=== PATIENT | female | born 1955 | race Caucasian/White ===

== ENCOUNTER → 2016-08-03 | Outpatient (CLI) | payer OTHER | LOC: RAD 09:09 | PROVIDERS: ATTEND Family Medicine | DX: C82.88 Other types of follicular lymphoma, lymph nodes of multiple sites (principal); C85.80 Other specified types of non-Hodgkin lymphoma, unspecified site | CPT/HCPCS: 70491; 71260; 74178; Q9967 ==

== ENCOUNTER 2016-08-21 09:21 | Day surgery (SDC) | payer OTHER ==
[~2016-08-21] VITALS: Ht 170.2 cm; Wt 78.0 kg
[2016-08-21] VITALS (8 sets, daily range): BP systolic 99–1166; BP diastolic 62–92
[~2016-08-21 09:21] MED LIST: ASPI-586 PO; ATOR80TA PO; CHOL200018 PO; CYAN1TAB26 PO; DIGO250T15 PO; DILT120C PO; HEPARIN 5000 UNIT/0.5 ML SYRINGE ONE; INSU100I23 SQ; LACTATED RINGERS 1,000 ML IV SCH; LANTUS SOL100 UNIT/1 SQ; LIDOCAINE/EPINEPHRINE 1% 1:100,000 (XYLOCAINE) 30 ML VIAL INJ ONE; LISI5TAB14 PO; METF500T4 PO; METHYLENE BLUE 0.5% 50 MG/10 ML VIAL ONE; MTP50T PO; NS FLUSH 10 ML PRN IV; SIMV40TA2 PO; SODIUM CHLORIDE FLUSH 3 ML SYR IV PRN; ceFAZolin 2,000 MG in WATER (STERILE) FOR INJECTION 20 ML IV SCH
--- OUTSIDE RECORDS SUMMARY | 2016-08-21 09:25 | XMS REPORT | Continuity of Care Document ---
Author Author [facility] Address Unknown Phone Unavailable Allergies Active Description Code Type Severity Reaction Onset Reported/Identified Relationship to Patient Clinical Status Yes No Known Allergies [id number] Drug Allergy Unknown N/A 07/06/2013 Medications Problems Date Dx Coded Attending Type Code Diagnosis Diagnosed By 06/28/2012 Ot 038.9 SEPTICEMIA NOS 06/28/2012 Ot 041.12 METHICILLIN RESISTANT STAPHYLOCOCCUS AUR 06/28/2012 Ot 250.60 DIAB W NEURO MANIFEST, TYPE II OR UNSPEC 06/28/2012 Ot 250.80 DIAB W OTH SPEC MANIFEST, TYPE II OR UNS 06/28/2012 Ot 272.4 HYPERLIPIDEMIA NEC/NOS 06/28/2012 Ot 681.10 CELLULITIS, TOE NOS 06/28/2012 Ot 700 CORNS AND CALLOSITIES 06/28/2012 Ot 707.15 ULCER OF OTHER PART OF FOOT 06/28/2012 Ot 730.27 OSTEOMYELITIS NOS-ANKLE 06/28/2012 Ot 731.8 BONE INVOLV IN OTH DIS 06/28/2012 Ot 735.4 OTHER HAMMER TOE 06/28/2012 Ot 799.24 EMOTIONAL LABILITY 06/28/2012 Ot 995.92 SEVERE SEPSIS 06/28/2012 Ot V10.79 HX-LYMPHATIC MALIGN NEC 06/28/2012 Ot V58.67 LONG-TERM (CURRENT) USE OF INSULIN 09/09/2012 Ot 730.20 OSTEOMYELITIS NOS-UNSPEC 09/09/2012 Ot V58.62 ENCOUNT FOR LONG-TERM(CURRENT) USE OF AN 11/10/2012 Ot 041.12 METHICILLIN RESISTANT STAPHYLOCOCCUS AUR 11/10/2012 Ot 250.00 DIAB KENTRELL WO COMPL, TYPE II OR UNSPEC TY 11/10/2012 Ot 730.18 CHR OSTEOMYELIT NEC 11/10/2012 Ot V58.62 ENCOUNT FOR LONG-TERM(CURRENT) USE OF AN 11/10/2012 Ot V58.83 ENCOUNTER FOR THERAPEUTIC DRUG MONITORIN 07/06/2013 Jun LUI, Alonso [place] Ot 462 ACUTE PHARYNGITIS 09/15/2013 KULWANT VALERO DO Ot 276.8 HYPOPOTASSEMIA 09/15/2013 KULWANT VALERO DO Ot 724.2 LUMBAGO 09/15/2013 KULWANT VALERO DO Ot 786.05 SHORTNESS OF BREATH 10/10/2015 Ot 250.00 DIAB KENTRELL WO COMPL, TYPE II OR UNSPEC TY 10/10/2015 Ot 707.15 ULCER OF OTHER PART OF FOOT 10/10/2015 Ot 730.17 CHR OSTEOMYELIT-ANKLE 10/10/2015 Ot 682.7 CELLULITIS OF FOOT 10/10/2015 Ot 707.15 ULCER OF OTHER PART OF FOOT 10/10/2015 Ot V58.62 ENCOUNT FOR LONG-TERM(CURRENT) USE OF AN 10/10/2015 Ot V58.83 ENCOUNTER FOR THERAPEUTIC DRUG MONITORIN 10/10/2015 Ot 041.12 METHICILLIN RESISTANT STAPHYLOCOCCUS AUR 10/10/2015 Ot 041.84 BACTERIAL INFECTION DUE TO OTHER ANAEROB 10/10/2015 Ot 730.18 CHR OSTEOMYELIT NEC 10/10/2015 Ot V58.62 ENCOUNT FOR LONG-TERM(CURRENT) USE OF AN 10/10/2015 Ot 733.00 OSTEOPOROSIS NOS 10/10/2015 Ot 730.18 CHR OSTEOMYELIT NEC 10/10/2015 Ot V58.62 ENCOUNT FOR LONG-TERM(CURRENT) USE OF AN 10/10/2015 Ot V58.83 ENCOUNTER FOR THERAPEUTIC DRUG MONITORIN 10/10/2015 Ot V64.2 NO PROC/PATIENT DECISION 10/10/2015 Ot 996.59 MECH. COMPLIC, OTH. IMPLANT INTERNAL D 10/10/2015 Ot V58.62 ENCOUNT FOR LONG-TERM(CURRENT) USE OF AN 10/10/2015 Ot V58.83 ENCOUNTER FOR THERAPEUTIC DRUG MONITORIN 10/10/2015 Ot 202.80 OTH LYMPHOMAS EXTRANODAL SOLID ORGAN U 10/10/2015 Alonso Barahona MD Ot 202.80 OTH LYMPHOMAS EXTRANODAL SOLID ORGAN U 10/10/2015 Alonso Barahona MD Ot 730.20 OSTEOMYELITIS NOS-UNSPEC 10/10/2015 RADHA ORO MD Ot 996.1 MALFUNC VASC DEVICE/CRISTHIAN 10/10/2015 RADHA ORO MD Ot E879.8 ABN REACT-PROCEDURE NEC 10/10/2015 ALONSO IGNACIO MD Ot 510.9 EMPYEMA W/O FISTULA 10/10/2015 ALONSO IGNACIO MD Ot 730.27 OSTEOMYELITIS NOS-ANKLE 10/10/2015 ALONSO IGNACIO MD Ot 202.80 OTH LYMPHOMAS EXTRANODAL SOLID ORGAN U 10/10/2015 ALONSO IGNACIO MD Ot 510.9 EMPYEMA W/O FISTULA 10/10/2015 ALONSO IGNACIO MD Ot 730.27 OSTEOMYELITIS NOS-ANKLE 10/10/2015 ALONSO IGNACIO MD Ot 794.2 ABN PULMONARY FUNC STUDY 10/10/2015 ALONSO IGNACIO MD Ot V45.89 POSTSURGICAL STATES NEC 10/10/2015 Alonso Barahona MD Ot 786.50 CHEST PAIN NOS 10/10/2015 Ángel Kramer Ot 786.05 SHORTNESS OF BREATH 10/10/2015 ALONSO IGNACIO MD Ot 202.01 NODULAR LYMPHOMA HEAD 10/10/2015 ALONSO IGNACIO MD Ot 794.8 ABN LIVER FUNCTION STUDY 10/16/2015 ALONSO IGNACIO MD Ot Z85.72 PERSONAL HISTORY OF NON-HODGKIN LYMPHOMA 10/25/2015 ALONSO IGNACIO MD Ot Z85.72 PERSONAL HISTORY OF NON-HODGKIN LYMPHOMA 08/03/2016 Ot 250.00 DIAB KENTRELL WO COMPL, TYPE II OR UNSPEC TY 08/03/2016 Ot 707.15 ULCER OF OTHER PART OF FOOT 08/03/2016 Ot 730.17 CHR OSTEOMYELIT-ANKLE 08/03/2016 Ot 682.7 CELLULITIS OF FOOT 08/03/2016 Ot 707.15 ULCER OF OTHER PART OF FOOT 08/03/2016 Ot V58.62 ENCOUNT FOR LONG-TERM(CURRENT) USE OF AN 08/03/2016 Ot V58.83 ENCOUNTER FOR THERAPEUTIC DRUG MONITORIN 08/03/2016 Ot 041.12 METHICILLIN RESISTANT STAPHYLOCOCCUS AUR 08/03/2016 Ot 041.84 BACTERIAL INFECTION DUE TO OTHER ANAEROB 08/03/2016 Ot 730.18 CHR OSTEOMYELIT NEC 08/03/2016 Ot V58.62 ENCOUNT FOR LONG-TERM(CURRENT) USE OF AN 08/03/2016 Ot 733.00 OSTEOPOROSIS NOS 08/03/2016 Ot 730.18 CHR OSTEOMYELIT NEC 08/03/2016 Ot V58.62 ENCOUNT FOR LONG-TERM(CURRENT) USE OF AN 08/03/2016 Ot V58.83 ENCOUNTER FOR THERAPEUTIC DRUG MONITORIN 08/03/2016 Ot V64.2 NO PROC/PATIENT DECISION 08/03/2016 Ot 996.59 MECH. COMPLIC, OTH. IMPLANT INTERNAL D 08/03/2016 Ot V58.62 ENCOUNT FOR LONG-TERM(CURRENT) USE OF AN 08/03/2016 Ot V58.83 ENCOUNTER FOR THERAPEUTIC DRUG MONITORIN 08/03/2016 Ot 202.80 OTH LYMPHOMAS EXTRANODAL SOLID ORGAN U 08/03/2016 Alonso Barahona MD Ot 202.80 OTH LYMPHOMAS EXTRANODAL SOLID ORGAN U 08/03/2016 Alonso Barahona MD Ot 730.20 OSTEOMYELITIS NOS-UNSPEC 08/03/2016 RADHA ORO MD Ot 996.1 MALFUNC VASC DEVICE/CRISTHIAN 08/03/2016 RADHA ORO MD Ot E879.8 ABN REACT-PROCEDURE NEC 08/03/2016 ALONSO IGNACIO MD Ot 510.9 EMPYEMA W/O FISTULA 08/03/2016 ALONSO IGNACIO MD Ot 730.27 OSTEOMYELITIS NOS-ANKLE 08/03/2016 ALONSO IGNACIO MD Ot 202.80 OTH LYMPHOMAS EXTRANODAL SOLID ORGAN U 08/03/2016 ALONSO IGNACIO MD Ot 510.9 EMPYEMA W/O FISTULA 08/03/2016 ALONSO IGNACIO MD Ot 730.27 OSTEOMYELITIS NOS-ANKLE 08/03/2016 ALONSO IGNACIO MD Ot 794.2 ABN PULMONARY FUNC STUDY 08/03/2016 ALONSO IGNACIO MD Ot V45.89 POSTSURGICAL STATES NEC 08/03/2016 Alonso Barahona MD Ot 786.50 CHEST PAIN NOS 08/03/2016 Ángel Kramer Ot 786.05 SHORTNESS OF BREATH 08/03/2016 ALONSO IGNACIO MD Ot 202.01 NODULAR LYMPHOMA HEAD 08/03/2016 ALONSO IGNACIO MD Ot 794.8 ABN LIVER FUNCTION STUDY 08/03/2016 ALONSO IGNACIO MD Ot Z85.72 PERSONAL HISTORY OF NON-HODGKIN LYMPHOMA 08/07/2016 Alonso Barahona MD Ot C82.88 OTH TYPES OF FOLLICULAR LYMPHOMA, LYMPH 08/07/2016 Alonso Barahona MD, Ot C85.80 OT TYPES OF NON-HODGKIN LYMPHOMA, UNSPE Procedures Code Description Performed By Performed On 86.04 OTHER SKIN SUBQ I D 06/23/2012 86.22 EXCIS DEBRIDE OF WOUND, INFECT, OR BURN 06/23/2012 Results Encounters ACCT No. Visit Date/Time Discharge Status Pt. Type Provider Facility Loc./Unit Complaint [id number] 09/26/2013 15:33:00 2013 23:59:59 CLS Outpatient SANDEE LUI, [facility] RAD 202.80 Lymphoma Non specific abnorm of function [id number] 09/15/2013 09:28:00 2013 23:59:59 CLS Outpatient Ángel Kramer [facility] EMS TRANSPORT TO [facility] [id number] 09/15/2013 05:39:00 2013 09:45:00 DIS Emergency MARYLU CHARLES [facility] ED [id number] 07/06/2013 16:45:00 2013 23:59:59 CLS Outpatient Jun LUI, [facility] LAB LAB DROP OFF FROM DR OFFICE [id number] 07/06/2013 16:28:00 2013 18:00:00 [facility] [id number] 04/04/2013 06:57:00 2012 23:59:59 CLS Outpatient SANDEE LUI [facility] RAD 202.8 LYMPHOMA [id number] 04/03/2013 13:06:00 2012 23:59:59 CLS Outpatient SANDEE LUI, [facility] RAD CHECK FOR FLUID/FOR ASPIRATION OF FLUID FOR CULTUR [id number] 03/22/2013 12:24:00 2012 23:59:59 CLS Outpatient PREETHI LUI, RAD[facility] RAD RAD AND EUOP PORT FLUSH [id number] 03/02/2013 18:15:00 2012 23:59:59 CLS Outpatient Jun LUI, [facility] EUOP [id number] 03/02/2013 16:47:00 2012 23:59:59 CLS Outpatient [id number] 08/21/2016 10:30:00 PEN Preadmit PREETHI LUI, [facility] ASC RT. IJ POWER PORT INSERTION,LYMPH NODE BX.LT. GROI [id number] 08/03/2016 09:09:00 ACT Outpatient Jun LUI, [facility] RAD HX NECK CA,SWOLLEN LYMPH NODES [id number] 10/11/2015 06:49:00 ACT Outpatient SANDEE LUI, [facility] RAD HX LYMPHOMA Z85.72 [id number] 11/04/2012 06:54:00 Document Registration [id number] 10/03/2012 08:30:00 Document Registration [id number] 09/26/2012 14:36:00 Document Registration [id number] 09/20/2012 08:04:00 Document Registration [id number] 09/16/2012 08:18:00 Document Registration [id number] 09/12/2012 17:55:00 Document Registration [id number] 09/08/2012 06:09:00 Document Registration [id number] 08/10/2012 07:27:00 Document Registration [id number] 08/05/2012 08:04:00 Document Registration [id number] 08/03/2012 12:29:00 Document Registration [id number] 06/28/2012 18:58:00 Document Registration [id number] 06/21/2012 16:07:00 Document Registration [id number] 06/20/2012 11:40:00 Document Registration
--- NOTE | 2016-08-21 10:05 | NUR ---
PATIENT REPORTS HAVING PALPITATIONS OFF AND ON THROUGHOUT THE DAY. STATES THIS HAS GONE ON FOR SOMETIME. HEART RATE ON EKG READS 154. RESTING HEART RATE ON ADMISSION 150-160.
--- NOTE | 2016-08-21 10:24 | NUR ---
PATIENT RESTING IN BED. HEART RATE 68-75. PATIENT STATES IT IS NOT UNCOMMON FOR PULSE TO BE IN 160S AT HOME. STATES AGAIN THAT SHE FEELS PALPITATIONS EVERY DAY. PATIENT HAS NOT BEEN TAKING ANY OF HER PRESCRIBED MEDICATIONS FOR 2 YEARS. THESE MEDS INCLUDE ATORVASTATIN, DIGOXIN, DILTIAZEM, LANTUS, HUMALOG, LISINOPRIL, METFORMIN, METOPROLOL. PATIENT STATES DR. BEDOLLA IS FOLLOWING THIS. SHE HAS SEEN DR. BEDOLLA WITHIN THE LAST MONTH, PATIENT REPORTS HE AILYN LABS AND WILL AGAIN IN A MONTH TO DECIDE ON MEDICATIONS. CALL TO DR. BEDOLLA' OFFICE AT THIS TIME.
--- NOTE | 2016-08-21 10:28 | NUR ---
APOLINAR, NURSE AT DR. BEDOLLA' OFFICE CALLS BACK. STATES THEY ARE FOLLOWING LAB WORK, AND PATIENT IS TO BE SEEN LATER THIS MONTH IN THE OFFICE WITH LABS. PATIENT WAS SEEN ON July AND INSTRUCTED TO START BACK ON METFORMIN 500MG 2 TABS BID, ASPIRIN, AND LIPITOR. APOLINAR REPORTS PATIENT HAS HISTORY OF AFIB. PATIENT'S HEART REAT IN THE OFFICE WAS ELEVATED "BUT NORMAL" AT 96. THIS REPORTED TO DR. ORO AND ROSA M CISNEROS. DR. ORO WILL BE IN TO SEE PATIENT BEFORE PROCEEDING WITH PREOP.
--- NOTE | 2016-08-21 10:45 | NUR ---
DR. ORO IN TO SEE PATIENT. PATIENT'S HEART RATE REMAINS IN THE 70S WHILE RESTING IN BED. DR. ORO AND BLAYNE, [employer] OK TO PROCEED WITH PREOP AND PROCEDURE.
[2016-08-21] MEDS ORDERED: REMIFENTANIL 1 MG (ULTIVA) VIAL IV ONE (11:25)
[2016-08-21] MEDS ORDERED: MIDAZOLAM 2 MG/2 ML (VERSED) VIAL ONE (11:25)
[2016-08-21] MEDS ORDERED: ONDANSETRON 2 MG/ML (Z0FRAN) 2 ML VIAL ONE (11:59)
[2016-08-21] MEDS ORDERED: diphenhydrAMINE 50 MG/ML INJ (BENADRYL) ONE (11:59)
[2016-08-21] MEDS ORDERED: PROPOFOL 60 ML IV ONE (13:16)
--- NOTE | 2016-08-21 13:48 | NUR ---
pt resting in chair visiting with sons. heart rate 165. Dr Coello's office notified. Addendum: 08/21/16 at 1350 by Bharati Blanchard RN no palpitations felt by pt at this time.
[2016-08-21] MEDS ORDERED: ACETAMINOPHEN 500 MG TAB (TYLENOL) PO PRN (13:50)
[2016-08-21] MEDS ORDERED: ONDANSETRON 2 MG/ML (Z0FRAN) 2 ML VIAL IV PRN (13:50)
[2016-08-21] MEDS ORDERED: morphine INJ 4 MG/ML 1 ML SYRINGE IV PRN (13:50)
[2016-08-21] MEDS ORDERED: METOCLOPRAMIDE 10 MG/2 ML (REGLAN) VIAL IV PRN (13:50)
--- NOTE | 2016-08-21 14:02 | NUR ---
Dr Coello returns call with order to watch pt for an hour. pt resting with warm blankets, visitor in room. sons leave with prescription to fill.
--- NOTE | 2016-08-21 14:59 | NUR ---
PATIENT AND FAMILY EDUCATED ON IMPORTANCE OF TAKING MEDICATIONS AND FOLLOWING UP WITH DR. BEDOLLA. PATIENT STATES SHE FEELS FINE AND HER HEART RATE WILL GET BETTER. PATIENT STATES THIS IS NORMAL FOR HER. DR. ORO CALLED TO REPORT HEART RATE OF 160-175 WHILE SLEEPING FOR THE LAST HOUR. DR. ORO TO TALK TO DR. BEDOLLA AND CALL BACK.
--- NOTE | 2016-08-21 15:05 | OPERATIVE REPORT ---
DATE OF OPERATION: 08/21/2016 PRE-OPERATIVE DIAGNOSIS: 1. History of non-Hodgkin's lymphoma. 2. Left inguinal lymphadenopathy. 3. Skin lesion, left upper neck. POST-OPERATIVE DIAGNOSIS: 1. History of non-Hodgkin's lymphoma. 2. Left inguinal lymphadenopathy. 3. Skin lesion, left upper neck. OPERATIVE PROCEDURE: 1. Ultrasound guided insertion of right internal jugular PowerPort. 2. Incisional biopsy, left inguinal lymph node. 3. Excision of skin lesion, left upper neck. SURGEON: Brennen Coello MD PULMONOLOGY TECHNICIAN: Nette Benavidez RN FA ANESTHESIA: Monitored anesthesia care with local INDICATIONS: The patient is a 61-year-old referred by Dr. Ambrocio for placement of a PowerPort for treatment of lymphoma, which she had been treated for in the past. She has developed large bulky lymph nodes in the left inguinal region and he requested that we sample one of these for pathology. She also requested that we remove a skin lesion from just below her left ear and this will be done at the same time. DESCRIPTION OF PROCEDURE: The patient was informed of the risks and benefits and agreed to proceed. She was taken to the operating room and placed supine on a standard operating table with her left arm abducted on an arm board. She was administered preoperative IV antibiotics and then IV sedation. When properly sedated her right upper chest and neck was prepped and draped in standard sterile fashion with her head slightly turned to the left. Ultrasound was used to localize the large dilated internal jugular vein on the right side and she had been placed in Trendelenburg position for that part of the procedure. Then 1% lidocaine with epinephrine was injected into the skin over the vein, and the Cook needle was used to access the vein using ultrasound guidance. The Seldinger technique was then used to place the guidewire and fluoroscopy confirmed placement of the tip of the guidewire in the superior vena cava next to the heart. Lidocaine was injected in the skin below the right clavicle and a transverse incision made with the #15 blade scalpel measuring about 4 cm. A subcutaneous port was created both sharply and bluntly for the port and 2-0 Prolene sutures were placed through the pectoralis fascia at the base of the pocket and the port and catheter were placed within the pocket with the sutures passed through the holes in the sides of the port. An incision was created in the neck where the guidewire entered the skin using the #15 blade scalpel measuring about 1 cm across. The catheter was then tunneled from the chest incision to the neck incision and brought out through the neck incision. It was cut to approximately 13 cm from the skin. The dilator and sheath were passed over the guidewire and the dilator and guidewire were removed. The catheter was placed through the sheath and into the superior vena cava. The sheath was peeled away. Fluoroscopy confirmed adequate placement of the catheter with no kinks in the tip outside the right atrium of the heart. The Prolene sutures were tied to secure the port to the pectoralis fascia. The port aspirated easily and it was flushed with heparinized saline. The skin was closed at the neck incision with subcuticular 4-0 Monocryl. The chest incision was closed with 3-0 Vicryl in the subcuticular layer and 4-0 Monocryl in the skin. Dressings were applied to both incisions. Attention was then turned to the left inguinal lymph node biopsy. The drape was cut over the previously prepared area, and 1% lidocaine with epinephrine was injected over the palpable lymph node below the groin crease. A 4 cm transverse incision was made with the #15 blade scalpel and dissection was carried forth with the Metzenbaum scissors down through the underlying superficial fascia and to expose the huge lymph node that was the target for the biopsy. Rather than remove this large node, I decided to perform an incisional biopsy, and this was done with the #15 blade scalpel. The resulting defect in the lymph node was closed with interrupted 3-0 Vicryl. The subcutaneous tissue was reapproximated with interrupted 3-0 Vicryl and the skin was closed with subcuticular 4-0 Monocryl. Dressings were applied. Finally attention was turned to the skin lesion in the neck. This area was prepped and draped in standard sterile fashion, anesthetized with lidocaine and the lesion was excised with an elliptical incision that measured about 2 cm x 1 cm. The skin was closed with interrupted 5-0 nylon. The specimen was sent to pathology. A dressing was applied. The patient tolerated the procedures without complications.
--- NOTE | 2016-08-21 15:13 | NUR ---
DR. ORO CALLS BACK. HOSPITALIST TO SEE PATIENT AND PATIENT TO BE ADMITTED TO THE FLOOR.
--- NOTE | 2016-08-21 15:15 | NUR ---
DR. HOLLAND IN TO SEE PATIENT.
--- NOTE | 2016-08-21 15:35 | NUR ---
PATIENT TRANSPORTED TO ED VIA WHEELCHAIR. BELONGINGS IN HAND. SONS AT SIDE. PATIENT TRANSFERRED TO BED INDEPENDENTLY. MONITORS PLACED. REPORT GIVEN TO JON MOON.
[2016-08-21] MEDS ORDERED: DILT120C82 PO (16:54)
--- NOTE | 2016-08-23 13:04 | Diagnostic Imaging Report ---
EXAMINATION: Fluoro guidance CVA device. INDICATION: Non-Hodgkin's lymphoma Fluoroscopy was provided for Dr. Coello during his insertion of a right-sided PowerPort. 0.24 seconds of fluoroscopy time was utilized. There were no films obtained. IMPRESSION: Fluoro assistance was provided for Dr. Coello during his PowerPort insertion procedure. Dictated by: Dictated on workstation # [id number]
== END 2016-08-21 15:35 | disposition home or self-care (01) ==
LOC: ASC 09:21
PROVIDERS: ATTEND Surgery
DX: C85.15 Unspecified B-cell lymphoma, lymph nodes of inguinal region and lower limb (principal); L82.1 Other seborrheic keratosis; E11.9 Type 2 diabetes mellitus without complications; Z79.82 Long term (current) use of aspirin
CPT/HCPCS: 11100; 36561; 38500; 77001; 93005; C1788; J1200; J1644; J2250; J7120

== ENCOUNTER 2016-08-21 15:49 | Emergency (ER) | payer OTHER ==
[~2016-08-21] VITALS: Ht 170.2 cm; Wt 78.1 kg
[~2016-08-21 15:49] MED LIST changes: -HEPARIN 5000 UNIT/0.5 ML SYRINGE ONE; -LACTATED RINGERS 1,000 ML IV SCH; -LIDOCAINE/EPINEPHRINE 1% 1:100,000 (XYLOCAINE) 30 ML VIAL INJ ONE; -METHYLENE BLUE 0.5% 50 MG/10 ML VIAL ONE; -NS FLUSH 10 ML PRN IV; -SODIUM CHLORIDE FLUSH 3 ML SYR IV PRN; -ceFAZolin 2,000 MG in WATER (STERILE) FOR INJECTION 20 ML IV SCH
--- OUTSIDE RECORDS SUMMARY | 2016-08-21 15:53 | XMS REPORT | Continuity of Care Document ---
Author Author [facility] Address Unknown Phone Unavailable Allergies Active Description Code Type Severity Reaction Onset Reported/Identified Relationship to Patient Clinical Status Yes No Known Allergies [id number] Drug Allergy Unknown N/A 07/06/2013 Medications Problems [...] Status Pt. Type Provider Facility Loc./Unit Complaint [id number] 09/26/2013 15:33:00 2013 23:59:59 CLS Outpatient SANDEE LUI, [facility] RAD 202.80 Lymphoma Non specific abnorm of function [id number] 09/15/2013 09:28:00 2013 23:59:59 CLS Outpatient Ángel Kramer [facility] EMS TRANSPORT TO [facility] [id number] 09/15/2013 05:39:00 2013 09:45:00 DIS Emergency MARYLU CHARLES [facility] ED [id number] 07/06/2013 16:45:00 2013 23:59:59 CLS Outpatient Jun LUI, [facility] LAB LAB DROP OFF FROM DR OFFICE [id number] 07/06/2013 16:28:00 2013 18:00:00 [facility] [id number] 04/04/2013 06:57:00 2012 23:59:59 CLS Outpatient SANDEE LUI [facility] RAD 202.8 LYMPHOMA [id number] 04/03/2013 13:06:00 2012 23:59:59 CLS Outpatient SANDEE LUI, [facility] RAD CHECK FOR FLUID/FOR ASPIRATION OF FLUID FOR CULTUR [id number] 03/22/2013 12:24:00 2012 23:59:59 CLS Outpatient PREETHI LUI, [facility] RAD RAD AND EUOP PORT FLUSH [id number] 03/02/2013 18:15:00 2012 23:59:59 CLS Outpatient Jun LUI, [facility] EUOP [id number] 03/02/2013 16:47:00 2012 23:59:59 CLS Outpatient [id number] 08/21/2016 10:30:00 PEN Preadmit PREETHI LUI, [facility] ASC RT. IJ POWER PORT INSERTION,LYMPH NODE BX.LT. GROI [id number] 08/03/2016 09:09:00 ACT Outpatient Jun LUI, [facility] RAD HX NECK CA,SWOLLEN LYMPH NODES [id number] 10/11/2015 06:49:00 ACT Outpatient SANDEE LUI, [facility] RAD HX LYMPHOMA Z85.72 [id number] 11/04/2012 06:54:00 Document Registration [id number] 10/03/2012 08:30:00 Document Registration [id number] 09/26/2012 14:36:00 Document Registration [id number] 09/20/2012 08:04:00 Document Registration [id number] 09/16/2012 08:18:00 Document Registration [id number] 09/12/2012 17:55:00 Document Registration [id number] 09/08/2012 06:09:00 Document Registration [id number] 08/10/2012 07:27:00 Document Registration [id number] 08/05/2012 08:04:00 Document Registration [id number] 08/03/2012 12:29:00 Document Registration [id number] 06/28/2012 18:58:00 Document Registration [id number] 06/21/2012 16:07:00 Document Registration [id number] 06/20/2012 11:40:00 Document Registration
--- OUTSIDE RECORDS SUMMARY | 2016-08-21 15:54 | XMS REPORT | Continuity of Care Document ---
Author Author [facility] Address Unknown Phone Unavailable Care Team Providers Care Manager Of Environmental Services Name Role Phone Alonso Barahona MD PCP [phone] Insurance Providers Payer Name Policy Number Subscriber Name Relationship [employer] [id number] Jaquelin Yanez 19 Self / Same As Patient Advance Directives Directive Response Recorded Date/Time Advanced Directives Yes 08/21/16 9:55am Type Durable Power of Robotic Technician 08/21/16 9:55am Type Living Will 08/21/16 9:55am Other Adam Gamaliel-son 08/21/16 9:55am Problems Active Problems Medical Problem Onset Date Status Anemia Unknown Chronic CHR OSTEOMYELIT NEC 08/12/2012 Chronic Diabetes mellitus Unknown Chronic Diabetic foot ulcer 09/07/2012 Resolved Dyspnea ~09/14/2013 Acute Enlarged lymph node Unknown Acute Heart murmur Unknown Chronic Malaise and fatigue ~09/14/2013 Acute Non-Hodgkin's lymphoma Unknown Chronic Skin lesion Unknown Acute Tachycardia 07/06/2013 Resolved Medications Current Home Medications Medication Dose Units Route Directions Days/Qty Instructions Start Date Aspirin 81 Mg 81 Mg ORAL Daily 08/20/16 Past Home Medications Medication Directions Ordered Status Cholecalciferol (Vitamin D3) 2,000 Unit Capsule, 2000 Unit Oral 06/21/12 Discontinued Cyanocobalamin/Folic Acid 1 Each Tablet, 1 Each Oral Daily 06/21/12 Discontinued Metformin Hcl (Glucophage) 500 Mg Tablet, 500 Mg Oral Twice A Day 06/21/12 Discontinued Simvastatin (Zocor) 40 Mg Tablet, 40 Mg Oral Bedtime 06/21/12 Discontinued Insulin Glargine,Hum.rec.anlog 100 Unit/1 Ml Insuln.pen, 100 Unit Sub-Q Bedtime 06/21/12 Discontinued Insulin Lispro 100 Unit/1 Ml Insuln.pen, 100 Unit Sub-Q 06/21/12 Discontinued Insulin Lispro 100 Unit/1 Ml Insuln.pen, 100 Unit Sub-Q Three Times Daily With Meals 06/21/12 Discontinued Metformin Hcl (Glucophage) 500 Mg Tablet, 500 Mg Oral 09/15/13 Discontinued Diltiazem Hcl 120 Mg Cap.er.24h, 120 Mg Oral 09/15/13 Discontinued Lisinopril (Zestril) 5 Mg Tablet, 5 Mg Oral 09/15/13 Discontinued Metoprolol Tartrate (Lopressor) 50 Mg Tablet, 50 Mg Oral 09/15/13 Discontinued Digoxin 250 Mcg Tablet, 250 Mcg Oral 09/15/13 Discontinued Atorvastatin 80 Mg Tablet, 80 Mg Oral 09/15/13 Discontinued Social History Social History Problem Response Recorded Date/Time Onset Date Status Exposure to occupational hazards No 06/21/2012 4:25pm Query Response Start Date Stop Date Smoking Status Former smoker Hospital Discharge Instructions Current inpatient/outpatient. Discharge instructions are currently unavailable. Plan of Care Prescriptions Functional Status No functional status results. Allergies, Adverse Reactions, Alerts Allergen Type Severity Reaction Status Last Updated No Known Allergies Allergy Active 07/06/13 Immunizations Name Given Type Status Date Influenza Vaccine Received if Current 03/21/13 Historical Historical Vital Signs Acute Vital Signs Vital Response Date/Time Temperature (Fahrenheit) 97.2 08/21/2016 3:00pm Pulse 168 bpm 08/21/2016 3:00pm Respirations 20 08/21/2016 3:00pm Results No known relevant diagnostic tests, laboratory data and/or discharge summary. Procedures Procedure Status Date Provider(s) CT SOFT TISSUE NECK W/DYE Completed 08/03/16 CT THORAX W/DYE Completed 08/03/16 CT ABD & PELV 1/> REGNS Completed 08/03/16 Completed 08/03/16 Encounters Encounter Location Arrival/Admit Date Discharge/Depart Date Attending Provider Registered Emergency Room [facility] 08/21/16 3:50pm ANA GOODWIN MD Departed Surgical Day [facility] 08/21/16 9:21am 08/21/16 3: 35pm RADHA ORO MD Registered Clinic [facility] 08/03/16 9:09am Alonso Barahona MD
[2016-08-21] MEDS ORDERED: ADENOSINE 6 MG/2 ML (ADENOCARD) VIAL IV ONE (15:55)
[2016-08-21] MEDS ORDERED: DILTIAZEM CD 120 MG (CARDIZEM CD) CAP PO ONE (16:40)
[2016-08-21] MEDS ORDERED: DILT120C82 PO (16:54)
[2016-08-21 18:43] VITALS: BP 131/59
== END 2016-08-21 17:25 | disposition home or self-care (01) ==
LOC: ED 15:50
DX: I47.1 Supraventricular tachycardia (principal); Z87.891 Personal history of nicotine dependence; Z98.890 Other specified postprocedural states
CPT/HCPCS: 93005; 96361; 96374; 99284; J0153; J7030; 93010

== ENCOUNTER 2016-08-26 15:44 | Outpatient (RCR) | payer OTHER ==
[~2016-08-26 15:44] MED LIST changes: +DILT120C82 PO
[2016-08-26 15:56] LABS: MEAN CORPUSCULAR HEMOGLOBIN 27.5 PG (26.0-34.0); MEAN CORPUSCULAR HGB CONC 32.3 g/dL (31.0-37.0); MEAN CORPUSCULAR VOLUME 85 FL (80-100); PLATELET COUNT 385 10^3uL (150-450); WHITE BLOOD COUNT 12.66 10^3uL (4.0-11.0)
[2016-08-26 16:01] LABS: BAND NEUTROPHILS % 2 % (0-6); EOSINOPHILS % 4 % (0-4); LYMPHOCYTES # 0.4 #; MONOCYTES # 0.4 #; MONOCYTES % 3 % (3-11); RBC MORPH NORMAL (NORMAL); SEGMENTED NEUTROPHILS % 88 % (51-67); TOTAL CELLS COUNTED 100
[2016-08-26 16:09] LABS: ANION GAP 15.5 MEQ/L (3-15); CALCULATED IONIZED CALCIUM 4.1 mg/dL (3.8-4.6); MAGNESIUM* 1.7 mg/dL (1.6-2.3); TOTAL PROTEIN 7.2 g/dL (6.4-8.5)
[2016-08-26 20:58] LABS: HEPATITIS B SURFACE ANTIGEN C Negative
[2016-08-26 22:56] LABS: HEPATITIS A ANTIBODY IGM Negative; HEPATITIS B CORE ABY IGM Negative
[2016-09-07] MEDS ORDERED: ATOR40TA59 PO (11:55)
[2016-09-07] MEDS ORDERED: MTF500TCR PO (11:55)
[2016-09-07] MEDS ORDERED: CYAN10006 PO (12:45)
[2016-09-07] MEDS ORDERED: CHOL200014 PO (12:46)
[2016-09-07] MEDS ORDERED: ONDA8TAB6 PO (12:47)
[2016-09-07] MEDS ORDERED: TRM50T PO (12:49)
[2016-09-08] MEDS ORDERED: DLT180CCR PO (13:43)
[2016-09-28 14:52] LABS: MEAN CORPUSCULAR HGB CONC 32.8 g/dL (31.0-37.0); MEAN CORPUSCULAR VOLUME 85 FL (80-100); MEAN PLATELET VOLUME 9.6 FL (6.0-9.5); PLATELET COUNT 359 10^3uL (150-450); WHITE BLOOD COUNT 15.73 10^3uL (4.0-11.0)
[2016-09-28 15:04] LABS: ALBUMIN 4.2 g/dL (3.4-5.0); CALCULATED IONIZED CALCIUM 4.1 mg/dL (3.8-4.6); TOTAL PROTEIN 7.5 g/dL (6.4-8.5)
[2016-09-28 15:10] LABS: MAGNESIUM* 1.5 mg/dL (1.6-2.3)
[2016-09-28 15:17] LABS: BAND NEUTROPHILS % 2 % (0-6); EOSINOPHILS % 7 % (0-4); LYMPHOCYTES # 0.3 #; MONOCYTES # 0.8 #; MONOCYTES % 5 % (3-11); RBC MORPH NORMAL (NORMAL); SEGMENTED NEUTROPHILS % 84 % (51-67); TOTAL CELLS COUNTED 100
[2016-10-05 16:26] LABS: MEAN CORPUSCULAR HEMOGLOBIN 27.9 PG (26.0-34.0); MEAN CORPUSCULAR HGB CONC 32.6 g/dL (31.0-37.0); MEAN CORPUSCULAR VOLUME 86 FL (80-100); MEAN PLATELET VOLUME 9.2 FL (6.0-9.5); PLATELET COUNT 299 10^3uL (150-450); WHITE BLOOD COUNT 10.41 10^3uL (4.0-11.0)
[2016-10-05 17:56] LABS: BAND NEUTROPHILS % 0 % (0-6); EOSINOPHILS % 3 % (0-4); LYMPHOCYTES # 0.5 #; MONOCYTES # 0.5 #; MONOCYTES % 5 % (3-11); RBC MORPH NORMAL (NORMAL); SEGMENTED NEUTROPHILS % 87 % (51-67); TOTAL CELLS COUNTED 100
== END 2016-10-14 19:16 | disposition home or self-care (01) ==
LOC: LAB 15:44
PROVIDERS: ATTEND Internal Medicine Hematology & Oncology
DX: Z79.899 Other long term (current) drug therapy (principal); C82.15 Follicular lymphoma grade II, lymph nodes of inguinal region and lower limb
CPT/HCPCS: 36415; 80053; 80074; 83615; 83735; 84100; 85007; 85027

== ENCOUNTER 2016-09-07 09:01 | Inpatient (IN) | payer OTHER ==
[~2016-09-07] VITALS: Ht 170.2 cm; Wt 78.6 kg
--- NOTE | 2016-09-07 11:40 | NUR ---
Pt. arrives to ICU [address] Barahona' office, ambulatory. See admission assessment.
[2016-09-07] MEDS ORDERED: SODIUM CHLORIDE FLUSH 10 ML ONE (11:44)
[2016-09-07 11:48] VITALS: BP 98/76
[2016-09-07] MEDS ORDERED: MTF500TCR PO (11:55)
[2016-09-07] MEDS ORDERED: ATOR40TA59 PO (11:55)
--- NOTE | 2016-09-07 12:00 | NUR ---
Pt. has port to R chest, placed 2 weeks ago. Pt. states it is ok to use. 20g 1" powerpoint needle placed at this time. Good blood return and flushes easily. Sterile dressing applied.
--- NOTE | 2016-09-07 12:07 | NUR ---
Pt. has been in SVT 160s since arrival to unit. Pt. has now spontaneously converted to SR 80s.
--- NOTE | 2016-09-07 12:31 | NUR ---
Pt. has converted back into SVT with rate in the 150s. Pt. has been able to tell when her rate increases.
[2016-09-07] MEDS ORDERED: DILTIAZEM IV FOR DRIP 125 MG in SODIUM CHLORIDE 100 ML IV PRN ×2 (12:35→17:10)
[2016-09-07] MEDS ORDERED: DILTIAZEM 25 MG/5 ML (CARDIZEM) VIAL IV ONE (12:35)
--- NOTE | 2016-09-07 12:35 | NUR ---
Dr. Humphreys here to see pt.
[2016-09-07] MEDS ORDERED: CALCIUM CARBONATE CHEWABLE 300 MG (TUMS) TABLET PO PRN ×2 (12:40→17:16)
[2016-09-07] MEDS ORDERED: ACETAMINOPHEN 325 MG TAB (TYLENOL) PO PRN ×2 (12:40→17:15)
[2016-09-07] MEDS ORDERED: DOCUSATE SODIUM 100 MG (COLACE) CAP PO PRN ×2 (12:40→17:17)
[2016-09-07] MEDS ORDERED: MAG HYDROX/AL HYDROX/SIMETH 200-200-20/5 ML (MAG-AL PLUS) 30 ML UDC PO PRN ×2 (12:40→17:18)
[2016-09-07] MEDS ORDERED: MAGNESIUM HYDROXIDE 80MG/ML (MILK OF MAGNESIA) 30 ML UDC PO PRN ×2 (12:40→17:18)
[2016-09-07] MEDS ORDERED: POLYETHYLENE GLYCOL 17 GM (MIRALAX) PACKET PO PRN ×2 (12:40→17:18)
[2016-09-07] MEDS ORDERED: PROMETHAZINE HCL INJ 12.5 MG in SODIUM CHLORIDE 25 ML IV PRN ×2 (12:40→17:15)
--- NOTE | 2016-09-07 12:40 | NUR ---
Pt. converted back to SR in 70s.
[2016-09-07] MEDS ORDERED: CYAN10006 PO (12:45)
[2016-09-07] MEDS ORDERED: CHOL200014 PO (12:46)
[2016-09-07] MEDS ORDERED: ONDA8TAB6 PO (12:47)
[2016-09-07] MEDS ORDERED: TRM50T PO (12:49)
--- NOTE | 2016-09-07 12:50 | NUR ---
Lab drawn from port, port flushed with NS and Heparin.
[2016-09-07] MEDS ORDERED: SODIUM CHLORIDE FLUSH 20 ML ONE ×2 (12:53→17:51)
[2016-09-07] MEDS ORDERED: GLUCAGON EMERGENCY 1 MG/KIT IM PRN ×2 (12:55→17:17)
[2016-09-07] MEDS ORDERED: DEXTROSE ORAL GEL (GLUTOSE 40%) 15 GM TUBE PO PRN ×2 (12:55→17:10)
[2016-09-07] MEDS ORDERED: DEXTROSE 50% 25 GM/50 ML SYRINGE IV PRN ×2 (12:55→17:16)
--- NOTE | 2016-09-07 13:03 | History and Physical (E) ---
History & Physical PCP: Alonso Barahona MD CC: SVT HPI Jaquelin Alston is a 61 year old female admitted from clinic 09/07 with SVT. She was seen in office for complaint of fast heart rate. She has history of SVT and was indeed in that rhythm in office with HR in 160's. She was hemodynamically stable so was sent for direct admit to ICU. On arrival to unit, awake, alert, interactive, oriented, breathing easily on room air. HR 140-160 with SVT rhythm. While gathering info for H&P, rhythm spontaneously converted to SR with HR 78. No intervention had yet been given. She has underlying NHL and recently has started seeing Dr. Ambrocio again. Had SVT in 2007 and has had chemical cardioversion before. Had been taking diltiazem but quit 2 years ago. She just restarted it when PCP prescribed it again because of episode of SVT for which she went to ED August 21. With this SVT, she is hemodynamically stable... sometimes feels palpitations but does not get light -headed, dizzy, or short of breath. No fever or cough. Has not had any recent chest pain. Has noticed some increased left foot swelling but not dramatic. No cough. Did have a medi-port placed 2 weeks ago. PMH * NHL, now doing chemotherapy [facility] (Dr. Ambrocio.) * SVT since 2007 * History of atrial fibrillation 2000 * Diabetes Mellitus Type II * RA * Asthma * Granuloma anulare * Multinodular goiter * HLD PSH * * Incisional hernia repair * cervical biopsy * lymph node biopsy * Medi-port placement 08/2016 ALLERGIES: Please see list at end of report. HOME MEDICATIONS: Please see list at end of report. FH Mother of NHL. Had CABG. Father had TIA. 2 siblings have DM. 2 have HTN. SH . Quit smoking in 1997. Rare alcohol intake. Works at [employer]. ROS CONSTITUTION: Has lost 50 pounds in the last two years. No fever or chills. HEENT: No change in vision or hearing. No sores in mouth, sore throat. CV: No chest pain PULM: No cough, shortness of breath, difficulty breathing. GI: No upset stomach, nausea, vomiting, constipation, or diarrhea. No blood in stool. : No dysuria. No blood in urine. MS: No new muscle or joint aches and pains. NEURO: No numbness or tingling. No weakness. INTEG: No rashes, lesions, or sores. ENDO: No heat or cold intolerance. No polydipsia or polyuria. HEME/LYMPH: No easy bruising or bleeding. No swollen glands. PSYCH: No change in mood or behavior. OBJECTIVE Vital Signs Date Time Temp Pulse Resp B/P Pulse Ox O2 Delivery O2 Flow Rate FiO2 09/07/16 11:48 97.6 162 22 98 Room air GEN: Awake, alert, oriented, NAD HEENT: EOMI, clear sclerae, mildly dry oral mucosa. CV: RRR now, S1 S2 normal with no murmur. SR now on tele. LUNGS: CTA B ABD: Soft, NT/ND with normal bowel sounds. EXTR: Trace BLE edema. INTEG: No rash. NEURO: No focal motor neuro deficit. Weight: 79.3 kg LABS: PENDING MICRO IMAGING: PENDING ASSESSMENT Jaquelin Alston is a 61 year old female admitted from clinic 09/07 with stable SVT, in the setting of history of SVT. She has chronic problems including NHL. PLAN * SVT: Spontaneously converted to SR without medical intervention. Monitor tele. Check TSH, troponin, echo. PO diltiazem dose increased on admit. Start diltiazem drip if not remaining stable. * Dehydration: On the basis of exam. Check UA. NS bolus x 1 L. Monitor I&O. * F/E/N: IVF as above. Medi-port. Diabetic diet. * Prophylaxis: Enoxaparin * Code Status: Full * Dispo: ICU for above issues. May rapidly improve and may be able to move out of ICU quickly. CHRONIC ISSUES * NHL: Rituximab. Obtain records from oncologist. * RA: Observe. Tramadol. * Constipation: Bowel regimen. * HLD: Atorvastatin * Diabetes Mellitus Type II: Metformin, sliding scale. Allergies/Home Medications Allergies: Coded Allergies: No Known Allergies (Verified Allergy, 07/06/13) Reported Home Medications Scheduled Aspirin (Aspir 81) 81 MG PO DAILY (Reported) Atorvastatin Calcium (Atorvastatin Calcium) 40 MG PO DAILY (Reported) Cholecalciferol (Vitamin D3) (Vitamin D-3) 2,000 UNIT PO DAILY (Reported) Cyanocobalamin (Vitamin B-12) (Vitamin B-12) 1,000 MCG PO DAILY (Reported) Diltiazem HCl (Cardizem CD) 120 MG PO DAILY Metformin HCl (Metformin HCl ER) 500 MG PO DAILY (Reported) Scheduled PRN Ondansetron HCl (Zofran) 8 MG PO Q8HR PRN PRN NAUSEA (Reported) Tramadol HCl (Tramadol HCl) Unknown Dose PO NEEDED PRN PRN PAIN (Reported) Copies to: End of Report . AGAPITO ACEVEDO MD Sep 07, 2016 12:58
[2016-09-07 13:05] LABS: BASOPHILS % (AUTO) 1 % (0-2); EOSINOPHILS # (AUTO) 0.4 10^3uL; EOSINOPHILS % (AUTO) 3 % (0-4); LYMPHOCYTES # (AUTO) 0.6 X10^3; MEAN CORPUSCULAR HEMOGLOBIN 27.7 PG (26.0-34.0); MEAN CORPUSCULAR HGB CONC 32.5 g/dL (31.0-37.0); MEAN CORPUSCULAR VOLUME 85 FL (80-100); MONOCYTES # (AUTO) 0.8 X10^3; MONOCYTES % (AUTO) 7 % (3-11); NEUTROPHILS # (AUTO) 10.3 X10^3; NEUTROPHILS % (AUTO) 84 % (51-67); PLATELET COUNT 316 10^3uL (150-450); WHITE BLOOD COUNT 12.26 10^3uL (4.0-11.0)
--- NOTE | 2016-09-07 13:05 | NUR ---
Per Dr. Humphreys, only start Cardizem drip if pt. sustains in SVT for 5 mins or greater. Do not need to give bolus dose since she will have PO on board.
[2016-09-07 13:13] LABS: ALBUMIN 3.4 g/dL (3.4-5.0); ALKALINE PHOSPHATASE 231 U/L (38-126); ANION GAP 14.4 MEQ/L (3-15); BUN/CREATININE RATIO 23 (10-20); CALCULATED IONIZED CALCIUM 4.5 mg/dL (3.8-4.6); TOTAL PROTEIN 6.2 g/dL (6.4-8.5)
--- NOTE | 2016-09-07 13:31 | NUR ---
Pt. to radiology for CXR at 1320. Pt back to room from radiology at this time.
--- NOTE | 2016-09-07 13:35 | NUR ---
EKG completed by RT. Taken to Dr. Humphreys.
--- NOTE | 2016-09-07 13:42 | Diagnostic Imaging Report ---
EXAMINATION: Two-view chest dated 09/07/2016. INDICATION: SVT. COMPARISON: 09/15/2013. FINDINGS: There is a right-sided chest port, new since previous examination. It is grossly unremarkable in appearance. Tip is in the SVC. There is bibasilar atelectasis, left greater than right. No effusions or pneumothorax is seen. The heart and pulmonary vasculature are unremarkable. IMPRESSION: Bibasilar atelectasis, left greater than right. Mild infiltrate felt to be less likely but correlate with symptoms. Remaining examination is unremarkable. Dictated by: Dictated on workstation # [id number]
[2016-09-07] MEDS ORDERED: DILTIAZEM 60 MG (CARDIZEM) TAB PO SCH ×2 (14:00→22:00)
--- NOTE | 2016-09-07 14:03 | NUR ---
Pt. aware that UA is needed, UA cup provided. Awaiting pharmacy to deliver PO Cardizem.
--- NOTE | 2016-09-07 14:05 | NUR ---
MULTIDISCIPLINARY MTG/DR. ACEVEDO: Pt. was admitted from Dr. Barahona' office in [facility] which she has a history of. She was recently started on on diltiazem. Pt. spontaneously converted once at the hospital. Pt. took two doses of diltiazem today and was given PO here. Pt. will be given a fluid bolus. An ECHO is ordered. Pt. admitted to the ICU due to the possible need for a diltiazem drip. No discharge needs identified at this time.
--- NOTE | 2016-09-07 14:54 | NUR ---
Ultrasound here for echo.
[2016-09-07 15:41] VITALS: BP 116/60
[2016-09-07] MEDS ORDERED: INSULIN LISPRO 1 UNIT/0.01 ML (HUMALOG) DOSE SC SCH (17:30)
[2016-09-07] MEDS: INSULIN LISPRO 1 UNIT/0.01 ML (HUMALOG) DOSE SC SCH ×2 (17:30→21:00)
--- NOTE | 2016-09-07 17:44 | NUR ---
UA sent to lab at this time.
--- NOTE | 2016-09-07 17:54 | NUR ---
MED REC COMPLETE--current med list obtained from external med history application, list provided by patient's PCP (Dr. Barahona), and retail pharmacy ([facility]).
[2016-09-07] MEDS ORDERED: NS FLUSH 10 ML PRN IV (17:55)
[2016-09-07 17:58] LABS: BILIRUBIN,URINE Negative (Negative); CLARITY,URINE Clear; COLOR,URINE Yellow; GLUCOSE, URINE (UA) Negative (Negative); LEUKOCYTE ESTERASE ,URINE Negative (Negative); PH,URINE 5.5 (5.0 - 8.0)
[2016-09-07] MEDS: metFORMIN 500 MG (GLUCOPHAGE) TABLET PO SCH (18:00)
--- NOTE | 2016-09-07 18:00 | NUR ---
Pt. has remained in SR since 1239 with no SVT episodes since.
--- NOTE | 2016-09-07 18:02 | NUR ---
Pts. family brought her a late lunch/early dinner around 1600, a salad. Pt. ate 100% and does not want her supper tray. Addendum: 09/07/16 at 1803 by Debbi Roche RN Amended: Links added.
[2016-09-07 18:14] LABS: CALCIUM OXALATE CRYSTALS,UR 3+ /HPF; URINE CENTRIFUGED VOLUME 12 mL
--- NOTE | 2016-09-07 18:20 | NUR ---
Pt. transferred to [facility] via WC accompanied by RN and [id number]. All belongings sent with pt.
--- NOTE | 2016-09-07 20:00 | NUR ---
Resting in bed watching TV. Family with patient. Watching movies on computer. Telemetry shows NSR. patient denies any discomforts at this time.
[2016-09-07 20:08] VITALS: BP 126/71
--- NOTE | 2016-09-07 21:00 | NUR ---
Patient very upset. States the patient and family in the room next to her are yelling and slamming doors and she cant get any rest. Patient upset that she is here. Does not want to be here. Anxious to go home tomorrow. Moved to room 308. Patient seems relieved and rests in bed. Call light within reach.
[2016-09-07 23:58] VITALS: BP 127/86
--- NOTE | 2016-09-08 00:55 | NUR ---
Troponin <0.012. Notified Dr Kumar as ordered. Dr. blum.
--- NOTE | 2016-09-08 00:55 | NUR ---
Blood drawn from port without difficulty. Flushed per protocol.
--- NOTE | 2016-09-08 01:00 | NUR ---
Patient very upset with the lab and being woke up. Very very upset does not want to be woke up during the night. Anxious to go home in the morning. Call light within reach.
--- NOTE | 2016-09-08 06:33 | NUR ---
Did not wake patient for weight or Accu Check and Lab. Patient stated that she would leave during the night if she was bothered again. Nurse will do before the end of shift.
--- NOTE | 2016-09-08 07:15 | NUR ---
Patient awake in room. Waiting for breakfast. Lab called to draw lab while patient awake. Apologizes for last night. Telemetry shows NSR. Accu Check 113 mg/hg. No discomforts voiced. Is wanting to go home this morning. Up ad leonila in room. No needs at tis time. Call light within reach.
--- NOTE | 2016-09-08 07:22 | NUR ---
Patient ambulating around room. Upon returning to bed at 0721, patient converts from NSR to SVT for approximately 15 seconds. Rate reaches 150 bpm. Spontaneously converts back to NSR. Patient states "yes I could feel that". Denies chest pain, palpitations, or other discomfort. Vital signs obtained, T- 97.0, P- 68 and regular, R- 20, BP- 119/66, 02- 95% on roomair. Will continue to monitor.
[2016-09-08] MEDS: INSULIN LISPRO 1 UNIT/0.01 ML (HUMALOG) DOSE SC SCH ×2 (07:30→11:30)
[2016-09-08 07:41] LABS: MEAN CORPUSCULAR HEMOGLOBIN 27.9 PG (26.0-34.0); MEAN CORPUSCULAR HGB CONC 32.8 g/dL (31.0-37.0); MEAN CORPUSCULAR VOLUME 85 FL (80-100); MEAN PLATELET VOLUME 9.2 FL (6.0-9.5); PLATELET COUNT 334 10^3uL (150-450); WHITE BLOOD COUNT 13.62 10^3uL (4.0-11.0)
[2016-09-08 08:09] LABS: ALBUMIN 3.5 g/dL (3.4-5.0); ANION GAP 15.1 MEQ/L (3-15)
[2016-09-08 08:13] VITALS: BP 115/94
[2016-09-08] MEDS: metFORMIN 500 MG (GLUCOPHAGE) TABLET PO SCH (08:21)
[2016-09-08 09:00] LABS: BAND NEUTROPHILS % 0 % (0-6); EOSINOPHILS % 4 % (0-4); LYMPHOCYTES # 0.7 #; MONOCYTES # 0.4 #; MONOCYTES % 3 % (3-11); RBC MORPH NORMAL (NORMAL); SEGMENTED NEUTROPHILS % 88 % (51-67); TOTAL CELLS COUNTED 100
[2016-09-08] MEDS ORDERED: DILTIAZEM CD 180 MG (CARDIZEM CD) CAP PO SCH ×2 (09:00)
[2016-09-08] MEDS ORDERED: CYANOCOBALAMIN 1000 MCG (VITAMIN B-12) TABLET PO SCH (09:00)
[2016-09-08] MEDS ORDERED: ATORVASTATIN 40 MG (LIPITOR) TABLET PO SCH (09:00)
[2016-09-08] MEDS ORDERED: DILTIAZEM CD 120 MG (CARDIZEM CD) CAP PO SCH (09:00)
[2016-09-08] MEDS ORDERED: CHOLECALCIFEROL 1000 INT UNITS (VITAMIN D3) TABLET PO SCH (09:00)
[2016-09-08] MEDS ORDERED: ASPIRIN 81 MG CHEW (CHILDREN'S ASA) PO SCH (09:00)
[2016-09-08] MEDS ORDERED: ENOXAPARIN 40 MG/0.4 ML (LOVENOX) SYR SC SCH ×2 (09:00)
[2016-09-08 12:00] VITALS: BP 118/64
[2016-09-08 12:03] VITALS: BP 109/62
[2016-09-08] MEDS ORDERED: DLT180CCR PO (13:43)
--- NOTE | 2016-09-08 13:49 | Discharge Instructions (E) ---
Discharge Instructions Instructions * You were evaluated and treated for recurrent SVT, a condition of fast heart rate. This improved spontaneously but your dose of diltiazem was increased from 120 mg daily to 180 mg daily. A new prescription has been provided. Only a 2 week prescription was made in case the dose would need to be increased further. When it's time for a refill, have your pharmacy contact your primary care physician. * Be sure to let your primary care doctor know if you experience recurrent palpitations, chest pain, shortness of breath, light-headedness, dizziness, or for any other concerns. Activity Instructions As tolerated. Doctor's Appointment Follow-up with your primary care doctor in 1 week. Discharge Diet: Heart Healthy AGAPITO ACEVEDO MD Sep 08, 2016 13:49
--- NOTE | 2016-09-08 14:10 | NUR ---
Discharge order received. IV discontinued from left forearm with no redness or swelling at insertion site. Right sided port-a-cath de-accessed. Instructions provided to patient with verbal and written understanding expressed. Denies chest pain, palpitations, or other distress. Dismissed ambulatory to private car accompanied by [employer]. No further needs.
--- NOTE | 2016-09-08 18:11 | Discharge Summary (E) ---
Discharge Summary (E) Admit Date/Time Sep 07, 2016 at 11:38 Discharge Date/Time Sep 08, 2016 at 14:05 Admitting Provider Agapito Acevedo MD Primary Care Provider Alonso Barahona MD Attending Provider Agapito Acevedo MD Consulting Provider History and Present Illness Jaquelin Alston is a 61 year old female admitted from clinic 09/07 with stable SVT, in the setting of history of SVT. She has chronic problems including NHL. She was admitted initially to ICU for possible need of diltiazem drip but she converted to SR spontaneously before any medications were needed. She had already taken home dose of diltiazem 120 mg prior to admit. Additional IR doses were given and her AM dose 09/08 was increased to 180 mg. She remained out of SVT though she had a brief burst of PAT in early AM 09/08. She was encouraged to stay additional 24 hours to further observe her heart rate but she insisted instead on discharge. Education provided at discharge regarding findings, plan of care. She went home in improved, stable condition. Hospital Course and Treatment * SVT: Spontaneously converted to SR without medical intervention. Monitored tele. TSH normal. Troponin not elevated. Checked echo. Results still pending at the time of discharge. PO diltiazem dose increased on admit and prescribed dose at 180 mg at discharge. Sent home with only 15 pills in case dose needs further adjustment. * Dehydration: Resolved. On the basis of exam. Check UA. NS bolus x 1 L. Monitor I&O. * F/E/N: IVF as above. Medi-port. Diabetic diet. * Prophylaxis: Enoxaparin * Code Status: Full * Dispo: ICU for above issues. Transferred rapidly to med/surg since drip was not needed. CHRONIC ISSUES * NHL: Rituximab. * RA: Observe. Tramadol. * Constipation: Bowel regimen. * HLD: Atorvastatin * Diabetes Mellitus Type II: Metformin, sliding scale. Discharge Physicial Exam General Vital Signs Date Time Temp Pulse Resp B/P Pulse Ox O2 Delivery O2 Flow Rate FiO2 09/08/16 12:03 97.4 90 20 109/62 96 Room air GEN: Awake, alert, oriented, NAD HEENT: EOMI, clear sclerae, mildly dry oral mucosa. CV: RRR S1 S2 normal with no murmur. SR now on tele. LUNGS: CTA B ABD: Soft, NT/ND with normal bowel sounds. EXTR: Trace BLE edema. INTEG: No rash. NEURO: No focal motor neuro deficit. Laboratory/Radiology Data WBC was 12.26 on admit, 13.62 on discharge. Chemistry unremarkable on admit. Troponin trend was negative. NT-pro-BNP was mildly elevated at 698. TSH was normal. Full details of lab and imaging as follows: Laboratory Results-14 Days 09/07/16 12:56: Alanine Aminotransferase (ALT/SGPT) 34, Albumin 3.4, Albumin/Globulin Ratio 1.214, Alkaline Phosphatase 231H, Anion Gap 14.4, Aspartate Amino Transf (AST/ SGOT) 16, BUN/Creatinine Ratio 23H, Basophils # (Auto) 0.1, Basophils (%) (Auto ) 1, Blood Urea Nitrogen 19H, Calcium Level 9.5, Calcium/Ionized Calcium Ratio 4.5, Calculated Osmolality 281, Carbon Dioxide Level 30H, Chloride Level 102, Creatinine 0.84, Eosinophils # (Auto) 0.4, Eosinophils (%) (Auto) 3, Estimat Glomerular Filtration Rate 83.7, Estimated GFR (Non- 69.2, Free Thyroxine (T4) Calculated 1.83, Glucose Level 122H, Hematocrit 35.10, Hemoglobin 11.4L, Lymphocytes # (Auto) 0.6, Lymphocytes (%) (Auto) 5L, Mean Corpuscular Hemoglobin 27.7, Mean Corpuscular Hemoglobin Concent 32.5, Mean Corpuscular Volume 85, Mean Platelet Volume 9.0, Monocytes # (Auto) 0.8, Monocytes (%) (Auto) 7, HV-Uml-H-Type Natriuretic Peptide 698H, Neutrophils # ( Auto) 10.3, Neutrophils (%) (Auto) 84H, Platelet Count 316, Potassium Level 3.6 , Red Blood Count 4.12, Red Cell Distribution Width 12.9, Sodium Level 144, Thyroid Stimulating Hormone (TSH) 1.78, Total Bilirubin 0.6, Total Protein 6.2L , Troponin I < 0.012, White Blood Count 12.26H 09/07/16 17:40: Urine Bacteria Rare, Urine Bilirubin Negative, Urine Blood Trace-intactH, Urine Calcium Oxalate Crystals 3+H, Urine Clarity Clear, Urine Collection Type Clean catch, Urine Color Yellow, Urine Glucose (UA) Negative, Urine Ketones Negative, Urine Leukocyte Esterase Negative, Urine Microscopic RBC 5-10H, Urine Nitrite Negative, Urine Protein Negative, Urine Specific [place] 1.025, Urine Squamous Epithelial Cells 20-50, Urine Urobilinogen 1.0, Urine WBC None seen, Urine pH 5.5, Volume Urine Centrifuged 12 ml 09/08/16 00:55: Troponin I < 0.012 09/08/16 07:25: Albumin 3.5, Anion Gap 15.1H, Basophils # (Auto) , Basophils (%) (Auto) , Blood Urea Nitrogen 18, Calcium Level 9.8, Carbon Dioxide Level 30H, Chloride Level 101, Creatinine 0.80, Eosinophils # (Auto) , Eosinophils (%) (Auto) , Estimat Glomerular Filtration Rate 88.5, Estimated GFR (Non- 73.2, Glucose Level 115H, Hematocrit 35.70, Hemoglobin 11.7L, Lymphocytes # (Auto) , Lymphocytes (%) (Auto) , Mean Corpuscular Hemoglobin 27.9, Mean Corpuscular Hemoglobin Concent 32.8, Mean Corpuscular Volume 85, Mean Platelet Volume 9.2, Monocytes # (Auto) , Monocytes (%) (Auto) , Neutrophils # (Auto) , Neutrophils ( %) (Auto) , Platelet Count 334, Potassium Level 4.3, Red Blood Count 4.19, Red Cell Distribution Width 13.2, Sodium Level 142, White Blood Count 13.62H, Absolute Band Neutrophils 0.0, Band Neutrophils % 0, Basophils # (Manual) 0.0, Basophils % (Manual) 0, Blood Morphology Comment Normal, Differential Total Cells Counted 100, Eosinophils # 0.5, Eosinophils % (Manual) 4, Lymphocytes # 0.7, Lymphocytes % (Manual) 5L, Monocytes # 0.4, Monocytes % (Manual) 3, Neutrophils # 12.0, Phosphorus Level 4.6, Segmented Neutrophils % 88H 09/07/2016 ECHO: Report pending. Prelim: LVEF 65%. RVSP 32 mmHg. Mild MR, TR. 09/07/16 CHEST PA/LAT (2 VIEW)* EXAMINATION: Two-view chest dated 09/07/2016. INDICATION: SVT. COMPARISON: 09/15/2013. FINDINGS: There is a right-sided chest port, new since previous examination. It is grossly unremarkable in appearance. Tip is in the SVC. There is bibasilar atelectasis, left greater than right. No effusions or pneumothorax is seen. The heart and pulmonary vasculature are unremarkable. IMPRESSION: Bibasilar atelectasis, left greater than right. Mild infiltrate felt to be less likely but correlate with symptoms. Remaining examination is unremarkable. Discharge Disposition Discharged home in improved, stable condition. Instructions * You were evaluated and treated for recurrent SVT, a condition of fast heart rate. This improved spontaneously but your dose of diltiazem was increased from 120 mg daily to 180 mg daily. A new prescription has been provided. Only a 2 week prescription was made in case the dose would need to be increased further. When it's time for a refill, have your pharmacy contact your primary care physician. * Be sure to let your primary care doctor know if you experience recurrent palpitations, chest pain, shortness of breath, light-headedness, dizziness, or for any other concerns. Activity Instructions As tolerated. Appointments Follow-up with your primary care doctor in 1 week. Discharge Diet: Heart Healthy Discharge Medications New Medications: Diltiazem HCl (Cardizem CD) 180 Mg Cap.er.24h 180 MG PO DAILY #15 Ref 0 CAP Continued Medications: Aspirin (Aspir 81) 81 Mg Tablet.dr 81 MG PO DAILY TAB Atorvastatin Calcium (Atorvastatin Calcium) 40 Mg Tablet 40 MG PO DAILY #30 Cholecalciferol (Vitamin D3) (Vitamin D-3) 2,000 Unit Tablet 2000 UNIT PO DAILY Vitamin/Mineral Supplemnt Ref 0 TAB Cyanocobalamin (Vitamin B-12) (Vitamin B-12) 1,000 Mcg Tablet 1000 MCG PO DAILY TAB Metformin HCl (Metformin HCl ER) 500 Mg Tab.er.24h 500 MG PO DAILY #30 Ondansetron HCl (Zofran) 8 Mg Tablet 8 MG PO Q8HR PRN NAUSEA Ref 0 TAB Tramadol HCl (Tramadol HCl) 50 Mg Tablet 50-100 MG PO Q4H PRN PAIN Ref 0 TAB Discontinued Medications: Diltiazem HCl (Cardizem CD) 120 Mg Cap.er.24h 120 MG PO DAILY #15 CAP Discharge Diagnosis See list above. Problems: Copies to: End of Report . AGAPITO ACEVEDO MD Sep 08, 2016 18:11
== END 2016-09-08 14:05 | disposition home or self-care (01) | DRG 309 ==
LOC: RT 09:01 → ICU 11:38 → MED/SURG 18:28
PROVIDERS: ADMIT Internal Medicine; ATTEND Internal Medicine
DX: I47.1 Supraventricular tachycardia (principal); C85.90 Non-Hodgkin lymphoma, unspecified, unspecified site; E86.0 Dehydration; M06.9 Rheumatoid arthritis, unspecified; K59.00 Constipation, unspecified; E78.5 Hyperlipidemia, unspecified; E11.9 Type 2 diabetes mellitus without complications; J45.909 Unspecified asthma, uncomplicated
CPT/HCPCS: 36415; 71020; 80053; 80069; 81003; 81015; 83880; 84439; 84443; 84484; 85025; 93005; 93306

== ENCOUNTER → 2016-09-22 | Outpatient (CLI) | payer OTHER ==
[~2016-09-22] MED LIST changes: +ATOR40TA59 PO; +CHOL200014 PO; +CYAN10006 PO; +DLT180CCR PO; +MTF500TCR PO; +ONDA8TAB6 PO; +TRM50T PO
[2016-09-22 17:41] LABS: MEAN CORPUSCULAR HEMOGLOBIN 27.4 PG (26.0-34.0); MEAN CORPUSCULAR HGB CONC 32.4 g/dL (31.0-37.0); MEAN CORPUSCULAR VOLUME 85 FL (80-100); PLATELET COUNT 298 10^3uL (150-450); WHITE BLOOD COUNT 26.98 10^3uL (4.0-11.0)
[2016-09-22 18:42] LABS: BAND NEUTROPHILS % 4 % (0-6); EOSINOPHILS % 3 % (0-4); MONOCYTES # 1.8 #; MONOCYTES % 7 % (3-11); SEGMENTED NEUTROPHILS % 85 % (51-67); TOTAL CELLS COUNTED 100
[2016-09-22 18:43] LABS: RBC MORPH NORMAL (NORMAL)
== END ==
LOC: LAB 17:21
PROVIDERS: ATTEND Internal Medicine Hematology & Oncology
DX: C82.15 Follicular lymphoma grade II, lymph nodes of inguinal region and lower limb (principal)
CPT/HCPCS: 36415; 85007; 85027

== ENCOUNTER → 2016-10-13 | Outpatient (CLI) | payer OTHER ==
[2016-10-13 08:03] LABS: MEAN CORPUSCULAR HEMOGLOBIN 28.8 PG (26.0-34.0); MEAN CORPUSCULAR HGB CONC 33.6 g/dL (31.0-37.0); MEAN CORPUSCULAR VOLUME 86 FL (80-100); MEAN PLATELET VOLUME 9.4 FL (6.0-9.5); PLATELET COUNT 209 10^3uL (150-450); WHITE BLOOD COUNT 7.04 10^3uL (4.0-11.0)
[2016-10-13 08:15] LABS: BAND NEUTROPHILS % 0 % (0-6); EOSINOPHILS % 8 % (0-4); LYMPHOCYTES # 0.4 #; MONOCYTES # 0.8 #; MONOCYTES % 11 % (3-11); RBC MORPH NORMAL (NORMAL); SEGMENTED NEUTROPHILS % 75 % (51-67); TOTAL CELLS COUNTED 100
== END ==
LOC: LAB 07:54
PROVIDERS: ATTEND Internal Medicine Hematology & Oncology
DX: C82.15 Follicular lymphoma grade II, lymph nodes of inguinal region and lower limb (principal)
CPT/HCPCS: 36415; 85007; 85027